=== PATIENT | female | born 1960 | race Caucasian/White ===

== ENCOUNTER 2017-03-08 06:56 | Inpatient (IN) | payer OTHER, BC ==
[~2017-03-08 06:56] MED LIST: ACTOS DPS30 MG PO; CELEBREX200 MG PO; COMPAZINE10 MG PO; DICLOFENAC 1.5% TP; FLEXERIL-DPS10 MG PO; GLUCOPHAGE DPS850 MG PO; HYDROCODONE 5MG/5 MG PO; JANUVIA100 MG PO; MAALOX DPS30 ML PO; MILK OF MAGNESI10 ML PO; MIRALAX PACKET17 GM PO; OXY IR DPS5 MG PO; PRILOSEC DPS20 MG PO; SENOKOT S1 TAB PO; SURFAK DPS240 MG PO; TYLENOL DPS325 MG PO; ULTRAM DPS50 MG PO; VASOTEC DPS10 MG PO; XARELTO10 MG PO; ZOFRAN4 M1 PO
[2017-03-14] MEDS ORDERED: NORCO 5-325 TA1 EACH PO (10:58)
== END 2017-03-13 13:18 | DRG 481 ==
DX: S72.451A Displaced supracondylar fracture without intracondylar extension of lower end of right femur, initial encounter for closed fracture (principal); D62 Acute posthemorrhagic anemia; E11.42 Type 2 diabetes mellitus with diabetic polyneuropathy; J98.11 Atelectasis; I10 Essential (primary) hypertension; B35.1 Tinea unguium; E66.01 Morbid (severe) obesity due to excess calories; E11.9 Type 2 diabetes mellitus without complications; K21.9 Gastro-esophageal reflux disease without esophagitis; W19.XXXA Unspecified fall, initial encounter; M19.90 Unspecified osteoarthritis, unspecified site; E78.5 Hyperlipidemia, unspecified; Z96.651 Presence of right artificial knee joint; Z79.84 Long term (current) use of oral hypoglycemic drugs; Z68.38 Body mass index [BMI] 38.0-38.9, adult

== ENCOUNTER 2017-03-13 12:41 | Inpatient (IN) | payer OTHER ==
[~2017-03-13] VITALS: Ht 154.9 cm; Wt 88.0 kg
--- NOTE | ~2017-03-13 | PNE ---
"ADMIT DATE: 03/13/17 ROOM#: [id number] | MR#: [id number] | | [facility] | [address] | [facility] [id number] | | PHYSICAL THERAPY SEX: F AGE: 56 : 60 | PROGRESS NOTE EXTENSION Rehab Plan of Care Update Dr. Durant, This letter is regarding your patient, Fabiola Fofana, at [facility], with an original goal date of 04/06/17. The patient has progressed, but would benefit from further therapy to ensure safety during functional mobility and dynamic activities that promote independence. We plan to extend this patient's plan of care for a new goal date of 04/13/17. PT 1-2x/day 5-6 days/week OT 1-2x/day 5-6 days/week Please let me know if you have any questions or concerns. Thank you, Johanna Linda, PT, DPT CLAUDIA Aguila Therapist Signature: Date: Therapist Signature: Date: Physician Signature: Date: "
[2017-03-14] MEDS ORDERED: NORCO 5-325 TA1 EACH PO (10:58)
--- NOTE | 2017-03-17 12:56 | NUR ---
AT 1145 WAS TALKING TO DAUGHTER AND PATEINT. DAUGHTER INTERPRETS . PT TEARY EYED AND OFFERS C/O BEING SAD. I DID ASK IF SHE NEEDED A PILL TO HELP WITH THE SADNESS. SHE SHAKES HER HEAD YES WITH TEARS ROLLING DOWN HER FACE. WILL NOTIFY O/C DOC AT [facility].
--- NOTE | 2017-03-30 09:59 | NUR ---
PATIENT NOTE MANOJ HAS BEEN ADMITTED TO [facility] FOR SHORT TERM REHAB FOLLOWING A FALL SHE HAD AT WORK. SHE IS HERE UNDER WORKMANS COMP WITH LUCIANA BAKER RN HER CASEMANAGER. MANOJ WILL RETURN TO HOME, IT MAY HAVE TO BE TO HER SONS HOME WHICH IS SAFER FOR HER AT THIS TIME BUT THE GOAL IS HOME. SHE SUSTANIED A RIGHT FEMUR FX IN THE FALL AND IS NWB STATUS AT THIS TIME. THERAPY GOAL DATE IS 04/06 AND PATIENT AND FAMILY AWARE OF THIS. SOCIAL WORK TO FOLLOW AND ASSIST WITH D/C PLANNING APPROPRIATE AND WITH CONCERNS OR NEEDS THAT MAY ARISE.
--- NOTE | 2017-04-11 14:40 | NUR ---
PATIENT NOTE MANOJ RECEIVED D/C ORDERS TODAY AT HER DR. MATIAS APPT. SHE WILL D/C TO HER SONS HOME 04/12. A HOME EVAL WAS ALSO DONE THIS A.M. WITH PT/OT AND LUCIANA RN WITH WORKMANS COMP ALL PRESENT. NO ONE HAS CONCERNS WITH HER RETURN TO HOME. A WALKER, COMMODE, W/C, HAND HELD SHOWER AND RAMP HAVE ALL BEEN DELIVERED AND IN PLACE. LUCIANA ASK THAT I ARRANGE HHC THROUGH [facility] AT HOME. I CALLED [facility] WHO INFORMED ME THAT THEY DO NOT EXCEPT WORKMANS COMP CASES. I NOTIFIED LUCIANA OF THIS AND SHE ASK THAT I CALL MATIAS. THE REFERRAL WAS MADE TO [facility] AND HE ASK THAT LUCIANA CALL HIM, I DID EMAIL HER WITH HIS NAME AND PNONE NUMBER. MANOJ AND HER FAMILY ARE HAPPY WITH THE CARE SHE HAS RECEIVED. I WISHED HER WELL AT HOME.
[2017-04-12] MEDS ORDERED: VASOTEC DPS10 MG PO ×2 (20:16→20:18)
[2017-04-12] MEDS ORDERED: GLUCOPHAGE DPS850 MG PO (20:16)
[2017-04-12] MEDS ORDERED: PAXIL DPS20 MG PO (20:17)
[2017-04-12] MEDS ORDERED: PEPCID DPS20 MG PO (20:17)
[2017-04-12] MEDS ORDERED: JANUVIA100 MG PO (20:17)
[2017-04-12] MEDS ORDERED: ACTOS DPS15 MG PO (20:17)
[2017-04-12] MEDS ORDERED: TYLENOL DPS325 MG PO (20:18)
[2017-04-12] MEDS ORDERED: XARELTO10 MG PO (20:18)
[2017-04-12] MEDS ORDERED: SENOKOT S1 TAB PO (20:18)
[2017-04-12] MEDS ORDERED: ULTRAM DPS50 MG PO (20:19)
== END 2017-04-12 11:00 | disposition home health service (06) | DRG 560 ==
LOC: SNU 12:41
PROVIDERS: ADMIT Family Medicine
PROC: F07M3ZZ Motor Function Treatment of Musculoskeletal System - Whole Body (ICD-10-PCS; principal; 2017-03-14)
PROC: F08Z4ZZ Home Management Treatment (ICD-10-PCS; principal; 2017-03-14)
DX: S72.451D Displaced supracondylar fracture without intracondylar extension of lower end of right femur, subsequent encounter for closed fracture with routine healing (principal); D62 Acute posthemorrhagic anemia; E11.42 Type 2 diabetes mellitus with diabetic polyneuropathy; I10 Essential (primary) hypertension; E66.9 Obesity, unspecified; E78.5 Hyperlipidemia, unspecified; F32.9 Major depressive disorder, single episode, unspecified; K21.9 Gastro-esophageal reflux disease without esophagitis; M19.90 Unspecified osteoarthritis, unspecified site; Z96.651 Presence of right artificial knee joint; Z79.84 Long term (current) use of oral hypoglycemic drugs; Z68.38 Body mass index [BMI] 38.0-38.9, adult; Z11.1 Encounter for screening for respiratory tuberculosis; R11.2 Nausea with vomiting, unspecified